=== PATIENT | male | born 1960 | race Caucasian/White ===

== ENCOUNTER → 2023-07-23 15:36 | Outpatient (CLI) | payer BC, SELFPAY ==
--- NOTE | ~2023-07-23 | US_ITS ---
EXAMINATION: US carotid duplex BI DATE: 07/23/2023 15:57 INDICATION: Amaurosis fugax. TECHNIQUE: Grayscale, color Doppler, and pulsed Doppler images of the cervical carotid arteries were obtained. The degree of vessel stenosis is placed in one of the following categories: normal, <50%, 5 0-69%, >=70% but less than near-occlusion, near-occlusion, or total occlusion. Note that percent sten osis relative to normal distal artery lumen diameter is indirectly measured from velocity measurement s as described by Harejet, et al. Radiology 2003; 229:340-346. COMPARISON: None. FINDINGS: RIGHT: The right common carotid artery (CCA) peak systolic velocity (PSV) is 113 cm/s. The right internal ca rotid artery (ICA) PSV is 66 cm/s. The right ICA end-diastolic velocity (EDV) is 21 cm/s. The right I CA/CCA PSV ratio is 0.6. Grayscale and color Doppler images yield an estimate of <50% diameter reduct ion from plaque in the ICA. There is antegrade flow in the right vertebral artery. LEFT: The left CCA PSV is 85 cm/s. The left ICA PSV is 80 cm/s. The left ICA EDV is 28 cm/s. The left ICA/C CA PSV ratio is 0.9. Grayscale and color Doppler images yield an estimate of <50% diameter reduction from plaque in the ICA. There is antegrade flow in the left vertebral artery. IMPRESSION: 1. <50% stenosis in the right internal carotid artery. 2. <50% stenosis in the left internal carotid artery. Reviewed, dictated and finalized at location A. [employer] [employer]
== END ==
PROVIDERS: PCP Internal Medicine; Visit Provider Specialist
DX: G45.3 Amaurosis fugax (principal)
CPT/HCPCS: 93880